=== PATIENT | female | born 1985 | race Two or more races ===

== ENCOUNTER → 2025-08-18 | Outpatient (CLI) | payer MEDICAID, SELFPAY ==
--- NOTE | 2025-08-18 14:00 | XR_ITS ---
Examination: Breast ultrasound complete, bilateral Date and time of exam: August 18, 2025 1412 hours INDICATIONS: Left breast tenderness in the 3:00 position left breast one year, left breast 3:00 nodule 7 mm on ultrasound August 30, 2024 Technique: Real-time grayscale ultrasonographic imaging bilateral breasts, including all 4 quadrants as well as nipple retroareolar and axillary regions. Findings: Sonographic images right breast 9:00 cyst 11 x 12 mm No solid nodules Sonographic images left breast 3:00 cyst 10 x 11 mm No solid nodules Dilated ducts retroareolar bilaterally smaller cysts IMPRESSION: BI-RADS Category 2: Benign findings
--- NOTE | 2025-08-18 15:00 | XR_ITS ---
Examination: Diagnostic digital mammography, bilateral Computer aided detection 3-D breast Tomosynthesis, bilateral Date and time of exam: August 18, 2025 1433 hours, compared to mammograms dating to January 07, 2024 Technique: Nonmagnified MLO, CC views of the breasts to been obtained, reconstructed from 3-D Tomosynthesis images. R2 computer aided detection program utilized for evaluation of suspicious masses and/or abnormal calcifications. 3-D Tomosynthesis images obtained. Findings: The breasts are heterogeneously dense, which may obscure small masses The breast architecture remains nodular Stable focal asymmetry outer left breast On this study 12 mm focal asymmetry inner right breast anterior depth 4.2 cm from the nipple Impression: BI-RADS Category 0: Incomplete: Additional imaging evaluation Recommend follow-up spot tomographic views and right upper quadrant right breast to assess 12 mm focal asymmetry inner right breast anterior depth 4.2 cm from nipple.
== END | disposition home or self-care (01) ==
DX: N64.89 Other specified disorders of breast (principal); R92.8 Other abnormal and inconclusive findings on diagnostic imaging of breast
CPT/HCPCS: 76641; 77062; 77066; G0279

== ENCOUNTER 2025-09-09 09:49 | Emergency (ER) | payer MEDICAID, SELFPAY ==
[2025-09-09 09:50] VITALS: BMI 26.6
[2025-09-09 09:57] VITALS: BP 113/74; PULSE 72; RESP 18; TEMP 36.7; O2SAT 99; BMI 24.6
[2025-09-09] MEDS: FAMOTIDINE 20 MG TABLET PO (10:30)
[2025-09-09] MEDS: DiphenhydrAMINE ELIX 25 MG/10 ML UDC 50 MG PO (10:31)
--- NOTE | 2025-09-09 11:16 | PD.EDSKIN ---
ED Skin Abcess FB-RME/HPI General Chief complaint: Skin/Abscess/Foreign Body Stated complaint: Rash All Over Time Seen by Provider: 09/09/25 10:08 Arrival date/time: 09/09/25 09:49 RME / HPI RME / HPI narrative: Patient without a past medical history of anaphylaxis. Patient complaining of itchy rash all over which began last night and it is very itchy. Denies shortness of breath, nausea vomiting, fever. Related Data Home Medications ?Medication ?Instructions ?Recorded ?Confirmed oseltamivir 75 mg capsule (Tamiflu) 75 mg PO BID 12/06/18 12/06/18 Previous Rx's ?Medication ?Instructions ?Recorded epinephrine 0.3 mg/0.3 mL 0.03 ml subcut .1 as need for 09/09/25 injection, auto-injector anaphylaxis, pharmacist to train #2 ea prednisone 20 mg tablet 40 mg PO QDAY #10 tabs 09/09/25 Allergies Allergy/AdvReac Type Severity Reaction Status Date / Time No Known Allergies Allergy Verified 09/09/25 09:56 ED Exam Narrative Physical exam: Constitutional: Vital Signs Reviewed. Well appearing. No acute distress. Not toxic appearing. Head: Normocephalic, atraumatic. Eyes: Conjunctiva clear. ENT: Mucous membranes moist. Neck: Trachea midline. Normal range of motion. No nuchal rigidity. Respiratory: Normal effort. No respiratory distress or accessory muscle use. Neuro: Alert and oriented. Speech normal. No focal gross motor or sensory deficits observed. Skin: Warm, dry, normal color. Patient with erythematous blanching urticarial geographic rash noted throughout sparing her face and mucosal surfaces. Additionally sparing the palms of her hands. Psych: Pleasant. Normal affect. Cooperative. Course Course Course Narrative: MDM Suspect: Rash is likely 2/2 contact dermatitis versus allergic reaction No mucocutaneous lesions/vesicular lesions to suggest TENS/SJS No induration, fluctuance, severe warmth, fever, streaking to suggest suppurative bacterial infection No petechial or raised purpura to suggest vasculitis, hemolytic, thrombocytopenic rash No systemic signs ie respiratory distress etc. to suggest anaphylaxis No fever, extremity desquamation, mucocutaneous changes, conjunctivitis, adenopathy to suggest Kawasaki disease This patient likely had an allergic reaction. The patient is now clinically stable and has been observed for an appropriate period without clinical deterioration. The patient is felt to be at very low risk for airway compromise or anaphylactic deterioration. I considered admission, but given above, that is not indicated at this time. The patient has been instructed to return immediately if any unanticipated change in status occurs. Plan for antihistamines, steroids, f/u with pmd and derm in 1-2 days Quality Measures none Orders Category Date Time Status DiphenhydrAMINE [Benadryl] Med 09/09/25 10:22 Discontinued 50 mg PO X1 ONE Famotidine [Pepcid] Med 09/09/25 10:22 Discontinued 20 mg PO X1 ONE predniSONE Med 09/09/25 10:22 Discontinued 60 mg PO X1 ONE Reevaluation(s) Reevaluation #1: At the time of reassessment, the patient remains alert and oriented ?3 with GCS 15. Vitals are normal, pain is controlled, and the patient is tolerating oral intake without nausea or vomiting. The patient is agreeable to discharge and verbalizes understanding of the diagnosis, studies, treatment plan, medications (including side effects/precautions), and strict ER return precautions as discussed in the ED. All concerns were addressed, and the patient is comfortable with the plan. Vital Signs Vital signs: Vital Signs Temperature 98.1 F 09/09/25 09:57 Pulse Rate 72 09/09/25 09:57 Respiratory Rate 18 09/09/25 09:57 Blood Pressure 113/74 09/09/25 09:57 Pulse Oximetry (%) 99 09/09/25 09:57 Oxygen Delivery Method Room Air 09/09/25 09:57 Skin / Abscess / Foreign Body Patient data External records reviewed:: None Clinical information provided by:: patient Social determinants that could affect healthcare access:: none Patient has the following chronic illnesses:: None How is presenting disease/condition affected by chronic disease/condition?: no chronic disease Evaluation data The following diagnostics were reviewed and interpreted by me:: other (specify) Lab and/or radiology exams considered but not ordered:: Labs and radiology considered, but not ordered as they were not clinically indicated at this time. Interpretation Summary: As noted Medications / Prescriptions Medications or Prescriptions considered but not ordered:: I considered prescription management (both outpatient prescriptions AND drug treatment in the ER) and decided that this was necessary and was prescribed as charted. Medication administrations:: Medication Administration History Discontinued Medications Diphenhydramine HCl (Diphenhydramine Elix 25 Mg/10 Ml Udc) 50 mg PO X1 ONE Stop: 09/09/25 10:23 Last Admin: 09/09/25 10:31 Dose: 50 mg Documented By: LIZBETH Famotidine (Famotidine 20 Mg Tablet) 20 mg PO X1 ONE Stop: 09/09/25 10:23 Last Admin: 09/09/25 10:30 Dose: 20 mg Documented By: LIZBETH Prednisone (Prednisone 20 Mg Tablet) 60 mg PO X1 ONE Stop: 09/09/25 10:23 Last Admin: 09/09/25 10:31 Dose: 60 mg Documented By: LIZBETH As noted Consultations Consultation(s) initiated? (list below): No Diagnosis Skin/Abscess Differential Diagnosis: abscess of skin or subcutaneous tissue, viral exanthem, dermatophytosis and urticaria Most likely diagnosis given after review of the tests above:: Urticaria Admission Indicated Admission indicated?: not indicated Admission Request Was there a request for admission?: No Disposition Plan Disposition Plan: Discharge Discharge Attestation Discharge Attestation: The patient and all family members were given an opportunity to ask questions and understood the discharge instructions. Discharge instructions specifically effects, indications for sooner follow up or return to the emergency department, and the expected course of current diagnosis. Patient condition: Stable Discharge Plan Plan Patient Disposition: HOME (Self Care) Patient condition on transfer: Stable Prescriptions/Referrals Prescriptions/Med Rec: New prednisone 20 mg tablet 40 mg PO QDAY Qty: 10 0RF Taper: Prednisone Taper 40 mg DAILY for 4 Days and 0 Hour epinephrine 0.3 mg/0.3 mL auto-injector 0.03 ml subcut .1 Qty: 2 0RF No Action oseltamivir [Tamiflu] 75 mg Capsule 75 mg PO BID Referrals: Hitesh Martin MD [Primary Care Provider, Family Practice] - In 1 week Problem List Clinical Impression: Urticaria Patient/Caregiver Discharge Instructions Education Materials: ED Hives (Adult) Additional Instructions: Follow up with your primary medical doctor and a insect control aide within 48 hours. Return to the Emergency Room immediately for any new, worsening, continuing symptoms or any concerns at all. Return to the Emergency Room within 48 hours if you are unable to follow up with your primary medical doctor and a insect control aide within 48 hours. Print Language: [place] Stand Alone Forms: Nicolette Olea Info., Patient Portal Info Letter PA/ALUMINUM HYDROXIDE PROCESS OPERATOR Supervising Physician PA/ALUMINUM HYDROXIDE PROCESS OPERATOR Supervising Physician: Dr. De Guzman
== END 2025-09-09 14:11 | disposition home or self-care (01) ==
PROVIDERS: Emergency Provider Emergency Medicine; PCP Family Medicine
DX: L50.9 Urticaria, unspecified (principal)
CPT/HCPCS: 99283; J7512; A9270

== ENCOUNTER 2025-09-10 20:01 | Emergency (ER) | payer MEDICAID, SELFPAY ==
[2025-09-10 20:01] VITALS: BMI 26.1
[2025-09-10 21:19] VITALS: BP 111/67; PULSE 76; RESP 18; TEMP 37.1; O2SAT 95
--- NOTE | 2025-09-10 21:28 | EDNOTE_ITS ---
ED Skin Abcess FB-RME/HPI General Chief complaint: Skin/Abscess/Foreign Body Stated complaint: RASH ALL OVER BODY Time Seen by Provider: 09/10/25 20:25 Arrival date/time: 09/10/25 20:01 This is a case of 40-year-old female with no medical history came in in the emergency room due to generalized maculopapular urticarial rashes on the chest abdomen neck both upper and both lower extremities on and off since Thursday with itchiness patient was here yesterday where she was given steroids Benadryl and Pepcid patient symptoms improved and resolved until today recurrence of the symptoms this patient decided to sought consult here in the emergency room Limitations: no limitations Related Data Home Medications ?Medication ?Instructions ?Recorded ?Confirmed oseltamivir 75 mg capsule (Tamiflu) 75 mg PO BID 12/0612/06/18 Previous Rx's ?Medication ?Instructions ?Recorded epinephrine 0.3 mg/0.3 mL 0.03 ml subcut .1 as need fo r 09/09/25 injection, auto-injector anaphylaxis, pharmacist to aiden al[place]te #2 ea prednisone 20 mg tablet 40 mg PO QDAY #10 tabs 09/09 famotidine 20 mg tablet (Pepcid) 20 mg PO BID #10 tabs 09/10/25 hydroxyzine pamoate 25 mg capsule 25 mg PO TID PRN itc tricia #20 caps 09/10/25 Allergies Allergy/AdvReac Type Severity Reaction Status Date / Time No Known Allergies Allergy Verified 09/09/25 09:56 Review of Systems Review of Systems Systems Reviewed: All systems reviewed, normal except as documented Constitutional Constitutional: Reports system reviewed and no additional complaints, except as documented and Reports as per HPI ENT Ears, Nose, Mouth, and Throat: Reports system reviewed and no additional complaints, except as documented and Reports as per HPI Cardiovascular Cardiovascular: Reports system reviewed and no additional complaints, except as documented and Reports as per HPI Respiratory Respiratory: Reports system reviewed and no additional complaints, except as documented and Reports as per HPI Gastrointestinal Gastrointestinal: Reports system reviewed and no additional complaints, except as documented and Reports as per HPI Integumentary/Breasts Skin/Breast: Reports system reviewed and no additional complaints, except as documented Neurologic Neurologic: Reports system reviewed and no additional complaints, except as documented and Reports as per HPI Past Medical History Social History SMOKING STATUS: Never smoker ED Exam General Limitations: Present no limitations General appearance: Present alert, in no apparent distress and other (Patient is awake alert oriented not in distress nontoxic looking well-hydrated well- nourished) Head Head exam: Present atraumatic, normocephalic and normal inspection Eye Eye exam: Present normal appearance, PERRL and EOMI ENT ENT exam: Present normal exam, normal oropharynx, mucous membranes moist and other (Normal HEENT exam no drooling of saliva no throat or facial swelling) Neck Neck exam: Present normal inspection, full ROM and trachea midline; Absent tenderness, meningismus, lymphadenopathy or thyromegaly Chest Chest inspection: Present normal inspection, symmetric chest wall rise and rash; Absent tenderness Respiratory Respiratory exam: Present normal lung sounds bilaterally; Absent respiratory distress, wheezes, stridor, accessory muscle use or prolonged expiratory phase Cardiovascular Cardiovascular exam: Present regular rate, normal rhythm and normal heart sounds; Absent bradycardia, tachycardia, irregular rhythm, systolic murmur or diastolic murmur Abdominal Exam Abdominal exam: Present soft and normal bowel sounds; Absent distention, tenderness, guarding, rebound, rigidity, diminished bowel sounds, hyperactive bowel sounds, hypoactive bowel sounds or organomegaly Extremities Exam Extremities exam: Present normal inspection and full ROM Back Exam Back exam: Present normal inspection and full ROM Neurological Exam Neurological exam: Present alert, oriented X3, CN II-XII intact, normal gait and reflexes normal; Absent motor sensory deficit Psychiatric Psychiatric exam: Present normal affect and normal mood Skin Skin exam: Present warm, dry, intact, normal color and other (Noted maculopapular urticarial rash on the neck chest abdomen back both upper and both lower extremities nonblanching no abscess no cellulitis) Course Quality Measures none Orders Category Date Time Status DiphenhydrAMINE INJ [Benadryl Inj] Med 09/10/25 21:27 Discontinued 50 mg IM X1 ONE Famotidine [Pepcid] Med 09/10/25 21:27 Discontinued 40 mg PO X1 ONE MethylPREDNISolone.* [SoluMEDROL Inj] Med 09/10/25 21:27 Discontinued 125 mg IM X1 ONE Vital Signs Vital signs: Vital Signs Temperature 98.8 F 09/10/25 21:19 Pulse Rate 76 09/10/25 21:19 Respiratory Rate 18 09/10/25 21:19 Blood Pressure 111/67 09/10/25 21:19 Pulse Oximetry (%) 95 09/10/25 21:19 Oxygen Delivery Method Room Air 09/10/25 21:19 Oxygen saturation is 95% in room air Skin / Abscess / Foreign Body MDM Narrative MDM Narrative:: This is a case of 40-year-old female with no medical history came in in the emergency room due to generalized maculopapular urticarial rashes on the chest abdomen neck both upper and both lower extremities on and off since Thursday with itchiness patient was here yesterday where she was given steroids Benadryl and Pepcid patient symptoms improved and resolved until today recurrence of the symptoms this patient decided to sought consult here in the emergency room physical examination patient is awake alert oriented not in distress nontoxic looking well-hydrated well-nourished lungs sound is clear no crackles no rales no retraction no stridor HEENT exam is normal and unremarkable no drooling of saliva no throat or facial swelling patient noted to have maculopapular urticarial rash chest and chest neck abdomen back both upper and both lower extremities suggestive of allergic urticaria no signs and symptoms of angioedema or anaphylaxis patient was given Pepcid Solu-Medrol IM and Benadryl 50 mg IM patient was observed after 30 minutes itching resolved rash is subsided I have a long discussion with the patient the there is a exposure of allergen at home does the symptoms or rashes recur patient advised to follow-up with PCP to be referred to microchip specialist for allergy testing recurrence persistent worsening symptoms return to the emergency room immediately or call 911 use of hypoallergenic soap and hypoallergenic laundry soap is advised patient will continue prednisone at home I will prescribe Pepcid and Vistaril for itchiness Patient was discharged with comfortable condition walking with stable gait. Patient verbalized no further complains explained diagnosis and answered patient question. Patient is comfortable with the proposed management plan including the need to follow up with his/her primary care physician and any specialist if applicable Discussed patient for any urgent condition or worsening sx, He/She needed to go to emergency room immediately or call 911. Patient acknowledge the responsibility to follow up as instructed and to monitor her/his symptoms. For any persistence of the symptoms for more than 3-5 days return precaution advised. Discussed the result of the test and was given printed discharge instruction Patient data External records reviewed:: [facility] previous records Clinical information provided by:: patient Social determinants that could affect healthcare access:: none Patient has the following chronic illnesses:: None How is presenting disease/condition affected by chronic disease/condition?: no chronic disease Evaluation data The following diagnostics were reviewed and interpreted by me:: other (specify) (None) Lab and/or radiology exams considered but not ordered:: None Interpretation Summary: None Medications / Prescriptions Medications or Prescriptions considered but not ordered:: Given Medication administrations:: Medication Administration History Discontinued Medications Diphenhydramine HCl (Diphenhydramine Inj 50 Mg/Ml Vial) 50 mg IM X1 ONE Stop: 09/10/25 21:28 Famotidine (Famotidine 20 Mg Tablet) 40 mg PO X1 ONE Stop: 09/10/25 21:28 Methylprednisolone Sodium Succinate (Methylprednisolone Sod Succ 62.5 Mg/Ml 2ml Vial) 125 mg IM X1 ONE Stop: 09/10/25 21:28 Given Consultations Consultation(s) initiated? (list below): No Diagnosis Skin/Abscess Differential Diagnosis: abscess of skin or subcutaneous tissue, urticaria and cellulitis Most likely diagnosis given after review of the tests above:: Allergic urticaria Admission Indicated Admission indicated?: not indicated Explain why admission is indicated or not indicated:: Not indicated Admission Request Was there a request for admission?: No Disposition Plan Disposition Plan: Discharge Discharge Attestation Discharge Attestation: The patient and all family members were given an opportunity to ask questions and understood the discharge instructions. Discharge instructions specifically effects, indications for sooner follow up or return to the emergency department, and the expected course of current diagnosis. Patient condition: Stable Discharge Plan Plan Patient Disposition: HOME (Self Care) Patient condition on transfer: Stable Prescriptions/Referrals Prescriptions/Med Rec: New hydroxyzine pamoate 25 mg capsule 25 mg PO TID PRN (Reason: itching) Qty: 20 0RF famotidine [Pepcid] 20 mg tablet 20 mg PO BID Qty: 10 0RF No Action oseltamivir [Tamiflu] 75 mg Capsule 75 mg PO BID prednisone 20 mg tablet 40 mg PO QDAY Qty: 10 0RF Taper: Prednisone Taper 40 mg DAILY for 4 Days and 0 Hour epinephrine 0.3 mg/0.3 mL auto-injector 0.03 ml subcut .1 Qty: 2 0RF Referrals: Hitesh Martin MD [Primary Care Provider, Family Practice] - In 1 week Problem List Clinical Impression: Allergic urticaria Patient/Caregiver Discharge Instructions Education Materials: ED Hives (Adult) Additional Instructions: Follow-up with your primary care physician in 2 days for reevaluation and to be referred to allergy test thing by microchip specialist for any persistent worsening of the rash and needs to see a manager transport if for further evaluation and treatment recurrence persistent worsening symptoms or any emergent concern call 911 or go to the nearest emergency room take your medication as directed continue prednisone and started tomorrow which was prescribed by the previous provider start Vistaril for itching and Pepcid keep the area clean and dry do not scratch use of hypoallergenic soap and hypoallergenic laundry soap is advised Print Language: Qatari Stand Alone Forms: Nicolette Award Info., Patient Portal Info Letter PA/MUSEUM OR ZOO DIRECTOR Supervising Physician PA/MUSEUM OR ZOO DIRECTOR Supervising Physician: Dr. Roberto Turner
[2025-09-10] MEDS: FAMOTIDINE 20 MG TABLET 40 MG PO (21:49)
[2025-09-10] MEDS: MethylPREDNISolone SOD SUCC 62.5 MG/ML 2ML VIAL 125 MG IM (21:54)
== END 2025-09-10 22:00 | disposition home or self-care (01) ==
PROVIDERS: Emergency Provider Emergency Medicine; PCP Family Medicine
DX: L50.0 Allergic urticaria (principal)
CPT/HCPCS: 96372; 99283; J1200; J2919; A9270

== ENCOUNTER → 2025-11-14 | Outpatient (CLI) | payer MEDICAID, SELFPAY ==
--- NOTE | 2025-11-14 14:45 | XR_ITS ---
Examination: Diagnostic digital mammography, unilateral, right Computer aided detection 3-D breast Tomosynthesis, unilateral Date and time of exam: 04 November 2016, 2025, 1421 hours INDICATION: Mammogram 08/18/2000 2512 mm focal asymmetry inner right breast Technique: Nonmagnified MLO, CC views of the right breast have been obtained, reconstructed from 3-D Tomosynthesis images. R2 computer aided detection program utilized for evaluation of suspicious masses and/or abnormal calcifications. 3-D Tomosynthesis images obtained. Findings: The breasts are heterogeneously dense, which may obscure small masses Benign calcifications Circumscribed nodule inner right breast on the spot compression cc views, 8 mm likely nipple level on the MLO view Impression: BI-RADS category 3: Probably benign findings 1 additional 6-month right mammogram follow-up is needed to document stability of nodule described above
== END | disposition home or self-care (01) ==
LOC: CDIM 14:13
DX: R92.331 Mammographic heterogeneous density, right breast (principal); N63.10 Unspecified lump in the right breast, unspecified quadrant
CPT/HCPCS: 77061; 77065; G0279